=== PATIENT | female | born 1975 | race African-American/Black ===

== ENCOUNTER → 2020-10-18 | Day surgery (SDC) | payer OTHER ==
[~2020-10-18] VITALS: Ht 157.5 cm; Wt 96.2 kg
[~2020-10-18] MED LIST: AMLODIPINE-BEN1 EAC1 PO; LOPRESSOR50 MG PO; TRIAMTERENE-HC1 EACH PO
[2020-10-18 11:32] LABS: HCG (URINE) SCREEN NEGATIVE (NEGATIVE)
== END | disposition home or self-care (01) ==
LOC: FAS 11:04
PROVIDERS: Anesthesiology
DX: K92.1 Melena (principal); K64.8 Other hemorrhoids; K64.4 Residual hemorrhoidal skin tags; I10 Essential (primary) hypertension; Z79.899 Other long term (current) drug therapy
CPT/HCPCS: 84703; J2704

== ENCOUNTER 2021-03-19 13:46 | Emergency (ER) | payer OTHER ==
[~2021-03-19] VITALS: Ht 157.5 cm; Wt 96.2 kg
[2021-03-19 14:42] LABS: BASOPHIL 0.6 % (0-2); EOSINOPHIL 1.3 % (0-5); HCT 36.2 % (37.0-47.0); HGB 12.1 g/dl (12.5-16.0); LYMPHOCYTE 41.4 % (15-48); MCH 31.4 pg (25.0-31.0); MCHC 33.4 g/dL (32.0-36.0); MONOCYTE 7.4 % (0-12); MPV 9.4 fL (6.0-9.5); NEUTROPHIL 48.9 % (41-80); NRBC 0; PLT 305 K/uL (150-400); RBC 3.85 M/uL (4.20-5.40); RDW 12.7 % (11.5-14.0); WBC 5.2 K/uL (4.0-10.5)
[2021-03-19 14:51] LABS: BILIRUBIN NEGATIVE (NEGATIVE); BLOOD NEGATIVE Ery/uL (NEGATIVE); CLARITY CLEAR (CLEAR); COLOR YELLOW (YELLOW); GLUCOSE (U) NORMAL (NORMAL); LEUKOCYTES NEGATIVE Leu/uL (NEGATIVE); NITRITE NEGATIVE (NEGATIVE); PROTEIN NEGATIVE (NEGATIVE); SPECIFIC GRAVITY 1.015 (1.001-1.030); UROBILINOGEN 0.2 mg/dL (0.2-1.0); pH 6.5 (5.0-9.0)
[2021-03-19 15:11] LABS: ALBUMIN 3.4 g/dL (3.4-5.0); BILIRUBIN - TOTAL 0.4 mg/dL (0.2-1.0); BUN/CREAT RATIO (CALC) 12.5 RATIO; CREATININE 0.72 mg/dL (0.51-0.95); GLOBULIN (CALCULATION) 4.1 g/dL; POTASSIUM 3.3 mmol/L (3.5-5.1); TOTAL PROTEIN 7.5 g/dL (6.4-8.2)
[2021-03-19 16:11] LABS: CORONAVIRUS 2019 SARS-COV-2 NEGATIVE (NEGATIVE); INFLUENZA A NAA NEGATIVE (NEGATIVE)
[2021-03-19] MEDS ORDERED: NORCO 5-325 TA1 EACH PO (16:44)
[2021-03-19] MEDS ORDERED: ONDANSETRON HCL4 MG PO (16:44)
[2021-03-19] MEDS ORDERED: BENTYL10 MG PO (16:44)
== END 2021-03-19 17:25 | disposition home or self-care (01) ==
LOC: FER 13:46
PROVIDERS: Nurse Practitioner Family
DX: D25.9 Leiomyoma of uterus, unspecified (principal); N83.201 Unspecified ovarian cyst, right side; I10 Essential (primary) hypertension; Z20.822 Contact with and (suspected) exposure to COVID-19
CPT/HCPCS: 36415; 80053; 81003; 85025; J1170; J1885; J2405; J7030; Q9967; U0002